=== PATIENT | male | born 1955 | race Hispanic/Latino ===

== ENCOUNTER 2018-08-09 08:34 | Emergency (ER) | payer BC ==
[2018-08-09 09:02] VITALS: BP 154/84
[2018-08-09] MEDS ORDERED: ZOFRAN IV ONE (09:59)
[2018-08-09] MEDS ORDERED: MORPHINE IV ONE (09:59)
--- NOTE | 2018-08-09 10:25 | Emergency Department Report ---
ED General Adult HPI - General Chief complaint: Chest Pain Stated complaint: CHEST/ABD/BACK PAIN Time Seen by Provider: 08/09/18 09:41 Source: patient Mode of arrival: Ambulatory Limitations: No Limitations - History of Present Illness Initial comments: Patient presents to the emergency department with a chief complaint of abdominal pain that started last night. Patient states that the hamburger last night he began to have right upper quadrant abdominal pain radiating to his back. Patient also complains of abdominal pain of his belly button is radiating to his back as well. Patient endorses nausea but denies vomiting. Patient has chest pain, shortness breath, or headache. -: Sudden Location: abdomen Radiation: back Severity scale (0 -10): 5 Quality: burning, sharp Consistency: constant Improves with: none Worsens with: none Associated Symptoms: denies other symptoms Treatments Prior to Arrival: none - Related Data Home Medications Medication Instructions Recorded Confirmed Last Taken Advair Diskus 250-50 mcg 250 mcg INHALATION BID 05/07/18 05/07/18 05/07/18 0700 Lisinopril [Zestril] 10 mg PO DAILY 05/07/18 05/07/18 05/07/18 2100 Singulair 10 mg PO QHS 05/07/18 05/07/18 05/07/18 10 Previous Rx's Medication Instructions Recorded Last Taken Type Aspirin EC [Aspirin Enteric Coated 81 mg PO QDAY #30 tablet. 05/09/18 Unknown Rx TAB] AtorvaSTATin [Lipitor] 40 mg PO QHS #30 tablet 05/09/18 Unknown Rx Carvedilol [Coreg] 6.25 mg PO BID #60 tablet 05/09/18 Unknown Rx Pantoprazole [Protonix TAB] 40 mg PO QDAY #30 tablet 05/09/18 Unknown Rx HYDROcodone/APAP 5-325 [[place] 1 each PO Q6HR PRN #12 tablet 08/09/18 Unknown Rx 5/325] Ondansetron [Zofran Odt] 4 mg PO Q4HR PRN #20 tab.rapdis 08/09/18 Unknown Rx Allergies Allergy/AdvReac Type Severity Reaction Status Date / Time Penicillins Allergy Shortness Verified 05/07/18 07:08 of Breath ED Review of Systems ROS: Stated complaint: CHEST/ABD/BACK PAIN Other details as noted in HPI Constitutional: denies: chills, fever Eyes: denies: eye pain, eye discharge, vision change ENT: denies: ear pain, throat pain Respiratory: denies: cough, shortness of breath, wheezing Cardiovascular: denies: chest pain, palpitations Endocrine: no symptoms reported Gastrointestinal: abdominal pain. denies: nausea, diarrhea Genitourinary: denies: urgency, dysuria Musculoskeletal: denies: back pain, joint swelling, arthralgia Skin: denies: rash, lesions Neurological: denies: headache, weakness, paresthesias Psychiatric: denies: anxiety, depression Hematological/Lymphatic: denies: easy bleeding, easy bruising ED Past Medical Hx - Past Medical History Hx Hypertension: Yes Hx Kidney Stones: Yes Hx Asthma: Yes - Surgical History Additional Surgical History: KIDNEY STONES - Social History Smoking Status: Never Smoker Substance Use Type: None - Medications Home Medications: Home Medications Medication Instructions Recorded Confirmed Last Taken Type Advair Diskus 250-50 mcg 250 mcg INHALATION BID 05/07/18 05/07/18 05/07/18 History 0700 Lisinopril [Zestril] 10 mg PO DAILY 05/07/18 05/07/18 05/07/18 History 2100 Singulair 10 mg PO QHS 05/07/18 05/07/18 05/07/18 History 10 Aspirin EC [Aspirin Enteric Coated 81 mg PO QDAY #30 tablet.dr 05/09/18 Unknown Rx TAB] AtorvaSTATin [Lipitor] 40 mg PO QHS #30 tablet 05/09/18 Unknown Rx Carvedilol [Coreg] 6.25 mg PO BID #60 tablet 05/09/18 Unknown Rx Pantoprazole [Protonix TAB] 40 mg PO QDAY #30 tablet 05/09/18 Unknown Rx HYDROcodone/APAP 5-325 [[place] 1 each PO Q6HR PRN #12 tablet 08/09/18 Unknown Rx 5/325] Ondansetron [Zofran Odt] 4 mg PO Q4HR PRN #20 tab.rapdis 08/09/18 Unknown Rx ED Physical Exam - General Limitations: No Limitations General appearance: alert, in no apparent distress - Head Head exam: Present: atraumatic, normocephalic - Eye Eye exam: Present: normal appearance, PERRL, EOMI - ENT ENT exam: Present: mucous membranes moist - Neck Neck exam: Present: normal inspection - Respiratory Respiratory exam: Present: normal lung sounds bilaterally. Absent: respiratory distress, wheezes, rales, rhonchi - Cardiovascular Cardiovascular Exam: Present: regular rate, normal rhythm. Absent: systolic murmur, diastolic murmur, rubs, gallop - GI/Abdominal GI/Abdominal exam: Present: soft, tenderness (tenderness to palpation right upper quadrant and at the umbilicus), normal bowel sounds. Absent: distended - Rectal Rectal exam: Present: deferred - Extremities Exam Extremities exam: Present: normal inspection - Back Exam Back exam: Present: normal inspection - Neurological Exam Neurological exam: Present: alert, oriented X3 - Psychiatric Psychiatric exam: Present: normal affect, normal mood - Skin Skin exam: Present: warm, dry, intact, normal color. Absent: rash ED Course Vital Signs 08/09/18 08/09/18 08/09/18 08:51 09:53 10:15 Temperature 98 F Pulse Rate 85 Respiratory 16 16 18 Rate Blood Pressure 154/84 [Left] O2 Sat by Pulse 93 Oximetry 08/09/18 10:45 Temperature Pulse Rate Respiratory 18 Rate Blood Pressure [Left] O2 Sat by Pulse Oximetry ED Medical Decision Making - Lab Data Result diagrams: 08/09/18 10:31 08/09/18 10:31 Lab Results 08/09/18 08/09/18 08/09/18 Range/Units 10:31 10:31 10:31 WBC 11.3 H (4.5-11.0) K/mm3 RBC 4.72 (3.65-5.03) M/mm3 Hgb 14.9 (11.8-15.2) gm/dl Hct 43.5 (35.5-45.6) % MCV 92 (84-94) fl MCH 32 (28-32) pg MCHC 34 (32-34) % RDW 14.1 (13.2-15.2) % Plt Count 308 (140-440) K/mm3 Lymph % (Auto) 12.0 L (13.4-35.0) % [place] % (Auto) 6.0 (0.0-7.3) % Eos % (Auto) 0.2 (0.0-4.3) % Baso % (Auto) 0.6 (0.0-1.8) % Lymph # 1.4 (1.2-5.4) K/mm3 [place] # 0.7 (0.0-0.8) K/mm3 Eos # 0.0 (0.0-0.4) K/mm3 Baso # 0.1 (0.0-0.1) K/mm3 Seg Neutrophils % 81.2 H (40.0-70.0) % Seg Neutrophils # 9.2 H (1.8-7.7) K/mm3 PT 12.8 (12.2-14.9) Sec. INR 0.91 (0.87-1.13) APTT 26.5 (24.2-36.6) Sec. Sodium 137 (137-145) mmol/L Potassium 4.5 (3.6-5.0) mmol/L Chloride 98.7 (98-107) mmol/L Carbon Dioxide 26 (22-30) mmol/L Anion Gap 17 mmol/L BUN 17 (9-20) mg/dL Creatinine 0.5 L (0.8-1.5) mg/dL Estimated GFR > 60 ml/min BUN/Creatinine Ratio 34 % Glucose 113 H (75-100) mg/dL Calcium 9.4 (8.4-10.2) mg/dL Total Bilirubin 0.30 (0.1-1.2) mg/dL AST 15 (5-40) units/L ALT 13 (7-56) units/L Alkaline Phosphatase 81 (35-129) units/L Troponin T < 0.010 (0.00-0.029) ng/mL NT-Pro-B Natriuret Pep 95.30 (0-900) pg/mL Total Protein 7.4 (6.3-8.2) g/dL Albumin 3.9 (3.9-5) g/dL Albumin/Globulin Ratio 1.1 % Lipase (13-60) units/L 08/09/18 08/09/18 Range/Units 12:27 12:27 WBC (4.5-11.0) K/mm3 RBC (3.65-5.03) M/mm3 Hgb (11.8-15.2) gm/dl Hct (35.5-45.6) % MCV (84-94) fl MCH (28-32) pg MCHC (32-34) % RDW (13.2-15.2) % Plt Count (140-440) K/mm3 Lymph % (Auto) (13.4-35.0) % [place] % (Auto) (0.0-7.3) % Eos % (Auto) (0.0-4.3) % Baso % (Auto) (0.0-1.8) % Lymph # (1.2-5.4) K/mm3 [place] # (0.0-0.8) K/mm3 Eos # (0.0-0.4) K/mm3 Baso # (0.0-0.1) K/mm3 Seg Neutrophils % (40.0-70.0) % Seg Neutrophils # (1.8-7.7) K/mm3 PT (12.2-14.9) Sec. INR (0.87-1.13) APTT (24.2-36.6) Sec. Sodium (137-145) mmol/L Potassium (3.6-5.0) mmol/L Chloride (98-107) mmol/L Carbon Dioxide (22-30) mmol/L Anion Gap mmol/L BUN (9-20) mg/dL Creatinine (0.8-1.5) mg/dL Estimated GFR ml/min BUN/Creatinine Ratio % Glucose (75-100) mg/dL Calcium (8.4-10.2) mg/dL Total Bilirubin (0.1-1.2) mg/dL AST (5-40) units/L ALT (7-56) units/L Alkaline Phosphatase (35-129) units/L Troponin T < 0.010 (0.00-0.029) ng/mL NT-Pro-B Natriuret Pep (0-900) pg/mL Total Protein (6.3-8.2) g/dL Albumin (3.9-5) g/dL Albumin/Globulin Ratio % Lipase 13 (13-60) units/L - EKG Data -: EKG Interpreted by Me EKG shows normal: sinus rhythm - EKG Data Interpretation: other (right bundle-branch block) - Radiology Data Radiology results: report reviewed - Medical Decision Making Discussed results with patient and the need to refrain from eating dairy prod ucts or foods containing fat Critical care attestation.: If time is entered above; I have spent that time in minutes in the direct care of this critically ill patient, excluding procedure time. ED Disposition Clinical Impression: Biliary colic, Gallbladder sludge Disposition: DC-01 TO HOME OR SELFCARE Is pt being admited?: No Does the pt Need Aspirin: No Condition: Stable Instructions: Biliary Colic (ED) Additional Instructions: return if worse Referrals: VANI RONDON MD [Primary Care Provider] - 3-5 Days BLAIR SHARP MD [Staff Physician] - 3-5 Days DENIA SCHAFFER DO [Staff Physician] - 3-5 Days Time of Disposition: 14:47
[2018-08-09 10:51] LABS: Basophils # (Auto) 0.1 K/mm3 (0.0-0.1); Basophils % (Auto) 0.6 % (0.0-1.8); Eosinophils % (Auto) 0.2 % (0.0-4.3); Hematocrit 43.5 % (35.5-45.6); Hemoglobin 14.9 gm/dl (11.8-15.2); Lymphocytes # (Auto) 1.4 K/mm3 (1.2-5.4); Mean Corpuscular HGB Conc 34 % (32-34); Mean Corpuscular Volume 92 fl (84-94); Monocytes # (Auto) 0.7 K/mm3 (0.0-0.8); Platelet Count 308 K/mm3 (140-440); Red Blood Count 4.72 M/mm3 (3.65-5.03); Red Cell Distribution Width 14.1 % (13.2-15.2)
[2018-08-09 11:03] LABS: INR 0.91 (0.87-1.13)
[2018-08-09 11:04] LABS: Partial Thromboplastin Time 26.5 Sec. (24.2-36.6)
[2018-08-09 11:19] LABS: Alanine Aminotransferase 13 units/L (7-56); Albumin 3.9 g/dL (3.9-5); BUN/Creatinine Ratio 34; Blood Urea Nitrogen 17 mg/dL (9-20); Calcium 9.4 mg/dL (8.4-10.2); Hemolysis Index 11
--- NOTE | 2018-08-09 12:26 | Ultrasound Report ---
ULTRASOUND ABDOMEN LIMITED: TECHNIQUE: Transabdominal ultrasound with color Doppler interrogation. HISTORY: right upper quadrant abdominal pain. COMPARISON: none. FINDINGS: LIVER: Moderate diffuse fatty infiltration is suspected in the liver. BILIARY SYSTEM: There is a mild degree of sludge in the gallbladder. No shadowing stones, abnormal dilatation or wall thickening. PANCREAS: Obscured by bowel gas. RIGHT KIDNEY: Normal. PROXIMAL AORTA: Normal. ASCITES: None. IMPRESSION: Fatty infiltration of the liver. Sludge in the gallbladder but no evidence for acute cholecystitis.
--- NOTE | 2018-08-09 12:48 | XRay Report ---
AP CHEST: HISTORY: chest pain AP view of the chest demonstrates a normal mediastinal and cardiac contour with clear lungs and normal bony and soft tissue structures. IMPRESSION: Unremarkable AP chest.
--- NOTE | 2018-08-09 14:34 | Cat Scan Report ---
FINAL REPORT EXAM: CT ABDOMEN PELVIS W CON HISTORY: RLQ and Umbilicus pain COMPARISON: None. TECHNIQUE: Multiple contiguous axial images were obtained from the lung bases to the pubic symphysis after administration of IV contrast. Reformatted coronal and sagittal images were available for revi ew. Delayed imaging was also performed. FINDINGS: Lung bases: Normal. Visualized heart and mediastinum: Normal heart size. Mild coronary artery calcifications. Liver: Decreased attenuation of the hepatic parenchyma, likely due to hepatic steatosis. Spleen: 2 low-density lesions within the spleen likely housing management representative of cysts. The larger lesion tanya sures approximately 3.5 x 3.1 centimeters. Pancreas: Normal. Gallbladder and Biliary Tree: The gallbladder is distended. There is mild pericholecystic fluid and g allbladder wall thickening. No calcified gallstones are visualized. Adrenal glands: Normal. Kidneys: Symmetric enhancement to both kidneys. No hydronephrosis. Bladder: Normal. Pelvic organs: Several calcifications of the prostate gland. Bowel: No focal wall thickening. No evidence of obstruction. The appendix is normal in caliber, measu ring up to 6 millimeters. There is no surrounding inflammatory change. Peritoneum: No significant mesenteric adenopathy. No free air or free fluid. Vasculature: Abdominal aorta is normal in caliber without evidence of aneurysm. Scattered atheroscler otic calcifications. Normal appearance of the portal venous system and the inferior vena cava. Bones and soft tissues: No suspicious osseous lesions. No acute fracture or dislocation. Grade 1-2 an terolisthesis of L4 on L5. Associated bilateral pars defect at L4. Fat containing umbilical hernia me asuring approximately 3 centimeters, with 2.7 centimeter neck. IMPRESSION: 1. Distended gallbladder with pericholecystic fluid and gallbladder wall thickening concerning for ac [place] cholecystitis. No calcified gallstone is visualized. No biliary ductal dilatation. 2. Normal appendix. No evidence of bowel obstruction. 3. Grade 1-2 anterolisthesis of L4 on L5 with associated bilateral pars defect. 4. Fat containing umbilical hernia measuring approximately 3 centimeters.
== END 2018-08-09 15:01 | disposition home or self-care (01) ==
LOC: ED 08:34
DX: K80.50 Calculus of bile duct without cholangitis or cholecystitis without obstruction (principal); K82.8 Other specified diseases of gallbladder; I10 Essential (primary) hypertension; J45.909 Unspecified asthma, uncomplicated; Z88.0 Allergy status to penicillin
CPT/HCPCS: 36415; 71045; 74177; 76705; 80053; 83690; 83880; 84484; 85025; 85610; 85730; 93005; 93010; 96374; 96375; 99284; J2270; J2405; Q9967

== ENCOUNTER 2018-08-25 09:14 | Outpatient (CLI) | payer BC ==
[2018-08-25] MEDS ORDERED: KINEVAC IV ONE ×2 (10:35→10:40)
--- NOTE | 2018-08-25 12:10 | Nuclear Medicine Report ---
HEPATOBILIARY SCAN: History: epigastric pain, right upper quadrant pain. Following the injection of the radionuclide, serial scanning was obtained over the right upper quadrant. Initial imaging of the liver demonstrates a relatively normal activity pattern. Progressive concentration of the radionuclide in the bile ducts, with filling of both the gallbladder and small bowel, is identified within a normal time period. The gallbladder ejection fraction is mildly decreased measuring 26%. The patient reports the same pain and cramping during the infusion of CCK. IMPRESSION: Cystic duct is patent. Slightly decreased gallbladder ejection fraction measuring 26%. This could represent biliary dyskinesia.
== END 2018-08-25 09:15 | disposition home or self-care (01) ==
LOC: NM 09:14
PROVIDERS: ATTEND Surgery
DX: R10.11 Right upper quadrant pain (principal); R10.13 Epigastric pain; I10 Essential (primary) hypertension; J45.909 Unspecified asthma, uncomplicated
CPT/HCPCS: 78227; A9537; J2805

== ENCOUNTER 2018-09-02 11:00 | Outpatient (CLI) | payer BC ==
[2018-09-02 11:31] LABS: Hematocrit 41.3 % (35.5-45.6); Hemoglobin 14.2 gm/dl (11.8-15.2); Mean Corpuscular HGB Conc 34 % (32-34); Mean Corpuscular Volume 93 fl (84-94); Platelet Count 248 K/mm3 (140-440); Red Blood Count 4.44 M/mm3 (3.65-5.03); Red Cell Distribution Width 14.5 % (13.2-15.2)
[2018-09-02 11:53] LABS: INR 0.87 (0.87-1.13)
[2018-09-02 12:17] LABS: BUN/Creatinine Ratio 23; Blood Urea Nitrogen 14 mg/dL (9-20); Calcium 9.1 mg/dL (8.4-10.2); Hemolysis Index 5
== END 2018-09-02 11:01 | disposition home or self-care (01) ==
LOC: LAB 11:00
PROVIDERS: ATTEND Surgery
DX: R10.13 Epigastric pain (principal); I10 Essential (primary) hypertension; J45.909 Unspecified asthma, uncomplicated
CPT/HCPCS: 36415; 80048; 85027; 85610; 85730

== ENCOUNTER 2018-10-14 06:26 | Day surgery (SDC) | payer BC ==
[~2018-10-14 06:26] MED LIST: ANCEF/STERILE WATER 2 GM/20 ML 2 GM/20 ML SYRINGE IV NR; LACTATED RINGERS 1,000 ML IV SCH; NEURONTIN PO SCH; TYLENOL PO SCH
--- NOTE | 2018-10-14 07:06 | Short Stay Summary ---
Short Stay Documentation Date of service: 10/14/18 - History H&P: obtained from office - Allergies and Medications Current Medications: Allergies Penicillins Allergy (Verified 10/12/18 16:40) Anaphylaxis Home Medications Medication Instructions Recorded Confirmed Last Taken Type Lisinopril [Zestril] 10 mg PO DAILY 05/07/18 10/12/18 05/07/18 History 2100 Pantoprazole [Protonix TAB] 40 mg PO QDAY #30 tablet 05/09/18 10/12/18 Unknown Rx Carvedilol [Coreg] 3.125 mg PO BID 10/12/18 10/12/18 Unknown History Fluticasone/Salmeterol [Advair 1 puff IH BID 10/12/18 10/12/18 Unknown History Diskus 250-50 mcg] Ipratropium/Albuter (Nf) 2 puff IH QID PRN 10/12/18 10/12/18 Unknown History [Combivent (Nf)] Montelukast [Singulair] 10 mg PO QPM 10/12/18 10/12/18 Unknown History Multivit-Min/FA/Lycopen/Lutein 1 each PO DAILY 10/12/18 10/12/18 Unknown History [Centrum Silver Tablet] Active Medications Acetaminophen (Tylenol) 1,000 mg PO PREOP SANDEE Gabapentin (Neurontin) 900 mg PO PREOP SANDEE Cefazolin Sodium (Ancef/Sterile Water 2 Gm/20 Ml) 2 gm in 20 mls @ 80 mls/hr IV PREOP NR; Protocol Stop: 10/14/18 23:00 Lactated Ringer's (Lactated Ringers) 1,000 mls @ 75 mls/hr IV DIRECT SANDEE - Physical exam General appearance: no acute distress Lungs: Normal air movement Neurological: Normal speech - Brief post op/procedure progress note Date of procedure: 10/14/18 (dictation:[id number]) Pre-op diagnosis: biliary dyskinesia Post-op diagnosis: other (chronic cholecystitis) Procedure: robotic assisted cholecystectomy Anesthesia: GETA Findings: extensive adhesions to gallbladder. Very long gallbladder. Thin walled. +stones. Surgeon: BLAIR SHARP Salvager: DENIA SCHAFFER Estimated blood loss: minimal Pathology: list (gallbladder) Specimen disposition: to lab Condition: stable - Hospital course Hospital course: uneventful - Disposition Condition at discharge: Stable Disposition: DC-01 TO HOME OR SELFCARE Short Stay Discharge Plan Activity: other (no driving until cleared by surgeon) Diet: regular Wound: open to air, keep clean and dry Special Instructions: no heavy lifting (or strenuous activity for 6 weeks) Additional Instructions: Apply an ice pack to the wounds for 10 to 20 minutes at a time. Do this at least 4 to 5 times a day. You may shower tomorrow. Pat dry the wounds. For the 1st 2 days, use ibuprofen and Tylenol on a scheduled basis. Take 600 mg of ibuprofen with food every 6 hours. Take 500 mg of Tylenol every 6 hours. Alternate these 2 medications. As an example, take the ibuprofen 1st. 3 hours later, take the Tylenol. After another 3 hours, take the ibuprofen again. Keep alternating this pattern for the 1st 2 days. As you can see, you will be taking each medicine every 6 hours. After 2 days, take the medications as needed for pain. Follow up with: HANNA BARAHONA MD [Primary Care Provider] - 7 Days BLAIR SHARP MD [Staff Physician] - 14 Days Forms: Outpatient Surgery DC Inst. Prescriptions: HYDROcodone/APAP 5-325 [Page 5/325] 1 each PO Q6HR PRN #10 tablet PRN Reason: Pain , Severe (7-10) Ondansetron [Zofran ODT TAB] 8 mg PO Q8HR PRN #10 tab.rapdis PRN Reason: Nausea And Vomiting
[2018-10-14] MEDS ORDERED: ZOFRAN IV PRN (07:27)
[2018-10-14] MEDS ORDERED: NARCAN 0.4 MG/1 ML IV PRN (07:27)
[2018-10-14] MEDS ORDERED: DILAUDID IV PRN (07:27)
[2018-10-14] MEDS ORDERED: SUBLIMAZE IV PRN (07:27)
--- NOTE | 2018-10-14 07:27 | Anesthesia Consultation ---
Anesthesia Consult and Med Hx Date of service: 10/14/18 - Airway Anesthetic Teeth Evaluation: Dentures ROM Head & Neck: Adequate Mental/Hyoid Distance: Adequate Mallampati Class: Class II Intubation Access Assessment: Good - Pulmonary Exam CTA: Yes - Cardiac Exam Cardiac Exam: RRR - Pre-Operative Health Status ASA Pre-Surgery Classification: ASA3 Proposed Anesthetic Plan: General - Pulmonary Hx Smoking: Yes (SINCE AGE 17; QUIT 2011) Hx Asthma: Yes - Cardiovascular System Hx Hypertension: Yes (2013) - Central Nervous System Hx Psychiatric Problems: No - Other Systems Hx Alcohol Use: No Hx Substance Use: No
--- NOTE | 2018-10-14 07:28 | Anesthesia Day of Surgery ---
Anesthesia Day of Surgery - Day of Surgery Patient Examined: Yes Patient H&P Reviewed: Yes Patient is NPO: Yes Beta Blockers: No Cardiac Clearance: No Pulmonary Clearance: No
[2018-10-14] MEDS ORDERED: QUELICIN ONE (07:31)
[2018-10-14] MEDS ORDERED: DECADRON ONE (07:31)
[2018-10-14] MEDS ORDERED: ZEMURON IV ONE (07:31)
[2018-10-14] MEDS ORDERED: XYLOCAINE MPF 2% ONE (07:31)
[2018-10-14] MEDS ORDERED: DIPRIVAN 10 MG/ML IV ONE (07:32)
[2018-10-14] MEDS ORDERED: VERSED ONE (07:41)
[2018-10-14] MEDS ORDERED: MARCAINE 0.5% INFILTRATI ONE ×2 (07:45→09:12)
[2018-10-14] MEDS ORDERED: XYLOCAINE 1% 20 mL ONE (07:45)
[2018-10-14] MEDS ORDERED: VANCOMYCIN 1,500 MG in NACL 0.9% 500 ML 500 ML IV NR (08:00)
[2018-10-14] MEDS ORDERED: VANCOMYCIN/NS 1 GM/250 ML 1 GM/250 ML BAG IV NR (08:00)
[2018-10-14] MEDS ORDERED: NACL P/F VIAL (10 ML) 10 ML ONE (08:39)
[2018-10-14] MEDS ORDERED: BLOXIVERZ ONE (09:09)
[2018-10-14] MEDS ORDERED: ROBINUL ONE (09:09)
[2018-10-14] MEDS ORDERED: XYLOCAINE 1% 20 mL INFILTRATI ONE (09:12)
[2018-10-14] MEDS ORDERED: NACL 0.9% IR ONE ×3 (09:13)
[2018-10-14] MEDS ORDERED: NORCO 5/325 PO PRN (11:30)
--- NOTE | 2018-10-14 12:10 | Post Anesthesia Evaluation ---
- Post Anesthesia Evaluation Patient Participated: Yes Airway Patent: Yes Stable Respiratory Function: Yes Nausea/Vomiting: No Temp > 96.8F: Yes Pain Manageable: Yes Adequeate Hydration: Yes Anesthesia Complications: No
--- NOTE | 2018-10-14 14:14 | Operative Report ---
PREOPERATIVE DIAGNOSIS: Biliary dyskinesia. POSTOPERATIVE DIAGNOSIS: Chronic cholecystitis. PROCEDURE: Robotic-assisted cholecystectomy. ATTENDING SURGEON: Regina Sears MD MINI SHIFTER: Dr. Saenz. ANESTHESIA: General. ESTIMATED BLOOD LOSS: Minimal. FLUIDS: 500 mL. FINDINGS: Markedly enlarged gallbladder with stones. The patient had very thickened peritoneal covering along with adhesions to the adjacent omentum. Gallbladder was noted to be thin in the mid body. SPECIMENS: Gallbladder. DRAINS: None. COMPLICATIONS: Stable, transferred to Recovery Room. INDICATIONS FOR THE PROCEDURE: This is a 62-year-old male, who was admitted a few months ago to the hospital with upper abdominal pain. Evaluation was done to rule out other causes. Ultimately, the patient was found to have possibly gastroesophageal reflux disease symptoms and maybe gallbladder issue. The patient was followed up in the office. Further testing was done. HIDA scan showed evidence of biliary dyskinesia and reproduction of the exact pain that the patient had when he was admitted. Upon CCK administration, the patient was assessed to be in need for cholecystectomy for biliary dyskinesia. Procedure, risks and benefits were explained to the patient. Risks included but were not limited to infection, bleeding, pain, injury to surrounding structures, possible need for open surgery, possible need for further procedures in the future. The patient was then consented. The patient is obese. OPERATIVE NOTE: The patient was brought to the operating room and placed on the table in supine position. After adequate general anesthesia was established, the patient was turned to the appropriate position for robotic cholecystectomy. Antibiotics have been administered. SCDs were in place. Sterile prep and drape was done and timeout was called. I began by placing a Veress needle in the left upper quadrant. I was able to insufflate on the first attempt, there was no injury to the underlying structures when we checked, when the camera was placed. We then replaced the Veress needle with a 5 mm port. Using the Optiview technique, we entered the peritoneal cavity safely. The other three ports, a 12 and two 5s were placed under direct vision. A 12 was placed at the umbilicus and a known fascial defect, so that we could close it at the end and then two 5 mm ports were placed laterally. The robot was docked. Instruments were inserted under direct vision and then I went to the console. The gallbladder was found to have dense adhesions to the surrounding omentum. This was taken down with a combination of blunt dissection and sharp dissection. I had to periodically replace the grasping instrument to get a lower hole so that we could keep elevating the gallbladder. Adhesions due to the enlarged size of the gallbladder extra time was required for the dissection. Extra time was taken to create a much larger than usual critical view and then to dissect out the cystic duct and cystic artery. Once this was done, both Dr. Saenz and I agreed that we had clearly identified the structures and there were no other ductal structures connected to the gallbladder. Two clips were placed distally, 1 proximally on the cystic duct, one was placed distally on the cystic artery, both were divided. Cystic artery was also cauterized. We then used the scissors to remove the rest of the gallbladder from the bed. Once this was removed, the bed itself had a very clean dissection plane. We did not get into the liver. We reevaluated with the clips, where there was no evidence of any bleeding or bile leak. During the dissection, the gallbladder did tear in a thin portion and therefore bile had spilled into the area. This was soaked up with gauze and then later we aspirated and irrigated the area thoroughly. Once we were confident that we had good hemostasis and the clips were in proper position also, once we confirmed there was no bile leak, then we converted to a laparoscopic procedure in order to extract the gallbladder. Robot was then docked. Laparoscopic instruments were inserted. Initially, the gauze was pulled from the 12 mm port and then the gallbladder was removed via the EndoCatch bag. We thoroughly irrigated out the area, suctioned out the area with excellent hemostasis. However, there did appear to be a slight collection of nonoozing, nonpulsatile blood on the liver bed. As a precaution, I left Surgicel packed into that area to aid with any hemostasis that may be required later. We removed the EndoCatch bag from the umbilical port site, desufflated the abdomen, removed all the other ports. Using 0 Vicryl stitch, I closed the fascial defect with a single stitch that appeared to bring the edges together very well. Local had been injected very thoroughly in all the port sites and therefore none was administered at the end. 4-0 Monocryl subcuticular stitches were placed in all the sites. Skin was cleaned and dried. Dermabond was placed. The patient tolerated the procedure well. There were no complications. All counts were correct at the end of the case. I spoke with the at the end of the case. I examined the gallbladder on the back table after we were done, we clearly had divided the cystic duct. There were no other ductal structures. No other concerns. JOB# [id number] NAVYA/SOLOMON
[2018-10-14 18:53] VITALS: BP 116/75
== END 2018-10-14 13:10 | disposition home or self-care (01) ==
LOC: OR 06:26
PROVIDERS: ATTEND Surgery
DX: K80.20 Calculus of gallbladder without cholecystitis without obstruction (principal); I10 Essential (primary) hypertension; J45.909 Unspecified asthma, uncomplicated; K21.9 Gastro-esophageal reflux disease without esophagitis; Z87.442 Personal history of urinary calculi; Z98.890 Other specified postprocedural states; Z88.0 Allergy status to penicillin; Z79.899 Other long term (current) drug therapy; Z87.891 Personal history of nicotine dependence; Z80.8 Family history of malignant neoplasm of other organs or systems
CPT/HCPCS: 47562; 88304; A4217; J0330; J1100; J1170; J2250; J2405; J2704; J2710; J3010; J3370; J7040; J7120; S2900